=== PATIENT | female | born 1940 ===

== ENCOUNTER 2018-03-17 22:16 | Emergency (ER) | payer MEDICAID, MEDICARE ==
[2018-03-17] MEDS ORDERED: Albuterol-Ipratrop 3 mg / 0.5 (3 ml) UD INH STA (22:47)
--- NOTE | 2018-03-17 22:49 | ED PDOC ---
HPI: Chest Pain Time Seen by Provider: 03/17/18 22:30 Chief Complaint (Nursing): Cough, Cold, Congestion Additional Complaint(s): Pt seen and examined at bedside with attending. 77F PMH HTN, HLD, DM p/w 2 days of chest tightness "around whole chest" associated with SOB. She denies association with fevers, chills, reflux, abdominal pain, but does report a cough for 3-4 days (daughters endorse cough has been ongoing for 1.5 weeks). She denies any prior AK, stents, denies any current palpitations. Past Medical History Vital Signs: Last Vital Signs Temp 36.8 C 03/17/18 22:19 Pulse 78 03/17/18 22:19 Resp 18 03/17/18 22:19 BP 177/89 H 03/17/18 22:19 Pulse Ox 97 03/17/18 22:19 - Medical History PMH: Arthritis, Diabetes, Emphysema, HTN, Hypercholesterolemia - Family History Family History: States: Unknown Family Hx - Home Medications Home Medications: Ambulatory Orders Medication Instructions Recorded Albuterol HFA [Ventolin HFA 90 2 puff IH [id number] PRN #1 dev 03/18/18 mcg/actuation (8 g)] - Allergies Allergies/Adverse Reactions: Allergies Allergy/AdvReac Type Severity Reaction Status Date / Time No Known Allergies Allergy Verified 03/17/18 22:19 Review of Systems ROS Statement: Except As Marked, All Systems Reviewed And Found Negative Respiratory: Positive for: Cough, Shortness of Breath, SOB with Exertion, Wheezing Physical Exam - Reviewed Vital Signs Reviewed: Yes - Physical Exam Appears: Positive for: Well, Non-toxic Head Exam: Positive for: ATRAUMATIC Skin: Positive for: Normal Color, Warm, Dry Eye Exam: Positive for: Normal appearance, EOMI ENT: Positive for: Pharynx Is (Clear), TM Is/Are (Clear) Neck: Positive for: Supple Cardiovascular/Chest: Positive for: Regular Rate, Rhythm. Negative for: JVD Respiratory: Positive for: Decreased Breath Sounds, Wheezing. Negative for: Rales Gastrointestinal/Abdominal: Positive for: Normal Exam, Bowel Sounds, Soft. Negative for: Tenderness Back: Negative for: L CVA Tenderness, R CVA Tenderness Extremity: Positive for: Normal ROM. Negative for: Pedal Edema, Calf Tenderness, Swelling Neurologic/Psych: Positive for: Alert, Oriented - Laboratory Results Result Diagrams: 03/17/18 23:30 03/17/18 23:30 - ECG O2 Sat by Pulse Oximetry: 97 Medical Decision Making Medical Decision Making: Suspect viral URI vs. ACS vs. - CBC, CMP, Troponin, Influenza, Mg - CXR, EKG - DuoNeb x1 [id number] - Pt reports symptomatic improvement in breathing, clinically wheezing has resolved - CXR no acute findings - Influenza negative - CBC with elevated Eosinophils 2420 Pt improved after bronchodilator and Troponin negative Disposition - Clinical Impression Clinical Impression: Asthma attack, Bronchospasm - Patient ED Disposition Is Patient to be Admitted: No Counseled Patient/Family Regarding: Diagnosis, Need For Followup, Rx Given - Disposition Disposition: Routine/Home Disposition Time: 00:28 Condition: IMPROVED Additional Instructions: Follow up with primary care doctor in 2-3 days for re-evaluation of symptoms Use inhaler as prescribed for relief of symptoms of shortness of breath Prescriptions: Albuterol HFA [Ventolin HFA 90 mcg/actuation (8 g)] 2 puff IH [id number] PRN #1 dev PRN Reason: Shortness Of Breath Instructions: Asthma, Adult (DC), Inhalers Forms: [employer] (Welsh) Print Language: ROMANIAN
[2018-03-17] MEDS ORDERED: Albuterol-Ipratrop 3 mg / 0.5 (3 ml) UD ONE (23:03)
[2018-03-17 23:48] LABS: BASO # 0.1 K/uL (0.0-0.2); BASO % 0.9 % (0.0-2.0); EOS # 0.5 K/uL (0.0-0.7); EOS % 4.7 % (0.0-4.0); HEMOGLOBIN 13.9 g/dL (12.0-16.0); LYMPH # 2.2 K/uL (1.0-4.3); LYMPH % 22.3 % (20.0-40.0); MEAN CELL VOLUME 87.7 fl (81.0-99.0); MEAN CORPUSCULAR HEMOGLOBIN 28.2 pg (27.0-31.0); MEAN CORPUSCULAR HGB CONC 32.2 g/dL (33.0-37.0); MEAN PLATELET VOLUME 10.2 fl (7.2-11.7); MONO # 0.7 K/uL (0.0-0.8); NEUT # 6.4 K/uL (1.8-7.0); NEUT % 65.1 % (50.0-75.0); NRBC % 0.2 % (0.0-0.0); RBC 4.94 Mil/uL (3.80-5.20); RED CELL DISTRIBUTION WIDTH 14.3 % (11.5-14.5); WHITE BLOOD COUNT 9.8 K/uL (4.8-10.8)
[2018-03-17 23:57] LABS: ALB/GLOB RATIO 1.2 (1.0-2.1); ALBUMIN 4.6 g/dL (3.5-5.0); ALT/SGPT 29 U/L (9-52); AST/SGOT 29 U/L (14-36); BLOOD UREA NITROGEN 14 mg/dl (7-17); CALCIUM 9.9 mg/dL (8.4-10.2); GFR NON-AFRICAN AMERICAN > 60
[2018-03-18] MEDS ORDERED: Albuterol-Ipratrop 3 mg / 0.5 (3 ml) UD INH STA (00:04)
[2018-03-18] MEDS ORDERED: Albuterol-Ipratrop 3 mg / 0.5 (3 ml) UD ONE (00:34)
[2018-03-18 00:41] VITALS: BP 175/82; PULSE 72; RESP 18; TEMP 97.9
[2018-03-18 00:59] VITALS: O2SAT 98
--- NOTE | 2018-03-18 08:46 | RAD ---
Date of service: 03/17/2018 HISTORY: cough COMPARISON: No prior. TECHNIQUE: Chest PA and lateral FINDINGS: LUNGS: No active pulmonary disease. PLEURA: No significant pleural effusion identified. No pneumothorax apparent. CARDIOVASCULAR: No aortic atherosclerotic calcification present. Normal cardiac size. No pulmonary vascular congestion. OSSEOUS STRUCTURES: No significant abnormalities. VISUALIZED UPPER ABDOMEN: Normal. OTHER FINDINGS: None. IMPRESSION: No acute cardiopulmonary disease appreciated.
--- NOTE | 2018-03-18 08:53 | CARD ---
APPROVED REPORT Date of service: 03/17/2018 EKG Measurement Heart [id number] DC 134P-8 [id number] <Conclusion> Normal sinus rhythm Nonspecific T wave abnormality Abnormal ECG
== END 2018-03-18 00:58 | disposition home or self-care (01) ==
LOC: H.ER 22:16
DX: J45.909 Unspecified asthma, uncomplicated (principal); J98.01 Acute bronchospasm; E11.9 Type 2 diabetes mellitus without complications; I10 Essential (primary) hypertension; J43.9 Emphysema, unspecified; R07.89 Other chest pain; Z79.899 Other long term (current) drug therapy